=== PATIENT | male | born 1980 | race Caucasian/White ===

== ENCOUNTER 2025-01-30 21:38 | Emergency (ER) | payer SELFPAY ==
[~2025-01-30] VITALS: Ht 177.8 cm; Wt 88.7 kg
[2025-01-30 21:54] VITALS: BP 134/85; PULSE 99; RESP 16; O2SAT 98
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
== END 2025-01-30 22:21 ==
LOC: ER 21:40
DX: Z02.89 Encounter for other administrative examinations (principal)
CPT/HCPCS: 99283